=== PATIENT | female | born 1930 | race Caucasian/White ===

== ENCOUNTER 2019-12-08 11:16 | Inpatient (IN) | payer MEDICARE ==
[2019-12-08] MEDS ORDERED: traMADol HCl 50 MG TAB PO PRN (12:17)
[2019-12-08] MEDS ORDERED: Ondansetron PF 4 MG/2 ML Vial IVP PRN (12:18)
[2019-12-08 13:59] LABS: #Lymphocytes 0.9 thou/uL (1.20-3.40); #Monocytes 0.4 thou/uL (0.11-0.59); #Neutrophils 6.9 thou/uL (1.40-6.50); %Eosinophils 0.1 % (0.0-10.0); %Lymphocytes 10.6 % (21.0-51.0); %Monocytes 5.2 % (0.0-10.0); %Neutrophils 84.2 % (42.0-75.0); Hemoglobin 13.8 g/dL (12.0-16.0); Mean Corpuscular HGB CONC 33.7 g/dL (32.0-36.0); Mean Corpuscular Hemoglobin 31.8 pg (27.0-31.0); Mean Corpuscular Volume 94.4 fL (78.0-98.0); Mean Platelet Volume 7.5 fL (7.4-10.4); Platelet Count 225 thou/uL (130-400); RBC Distribution Width 12.7 % (11.5-14.5); Red Blood Cell (RBC) Count 4.35 mill/uL (4.20-5.40); White Blood Cell (WBC) Count 8.2 thou/uL (4.8-10.8)
[2019-12-08 14:22] LABS: Anion Gap 16 mmol/L (10-20); BUN (Urea Nitrogen) 18 mg/dL (9.8-20.1); Calc. Creatinine Clearance 0 mL/min (70-130); Calcium 9.4 mg/dL (7.8-10.44); Carbon Dioxide 28 mmol/L (23-31); Chloride 95 mmol/L (98-107); Estimated GFR-MDRD 58; Glucose 123 mg/dL (83-110); Magnesium 2.8 mg/dL (1.6-2.6); Phosphorus 3.1 mg/dL (2.3-4.7); Potassium 3.9 mmol/L (3.5-5.1); Sodium 135 mmol/L (136-145)
[2019-12-08 15:08] VITALS: BMI 22.3
[2019-12-08] MEDS ORDERED: Ondansetron ODT 4 MG TAB PO PRN (15:16)
[2019-12-08] MEDS ORDERED: Calcium Carbonate 500 MG ChewTAB PO PRN (15:16)
[2019-12-08] MEDS ORDERED: Bisacodyl 10 MG SUPP PR PRN (15:16)
[2019-12-08] MEDS ORDERED: hydrALAZINE 20 MG/ML VIAL SLOW IVP PRN (16:19)
[2019-12-08] MEDS: Calcium Carbonate 600 MG + Vit D TAB PO SCH (17:18)
[2019-12-08] MEDS: Fentanyl 100 MCG/2 ML VIAL SLOW IVP PRN (17:18)
[2019-12-08] MEDS: Carbidopa/Levodopa 25-100 mg Tablet PO SCH ×2 (17:18→21:48)
[2019-12-08] MEDS ORDERED: Carbidopa/Levodopa 25-100 mg Tablet PO SCH (17:30)
[2019-12-08 19:16] LABS: Bacteria/HPF 4+ HPF (None Seen); Bilirubin Negative (Negative); Blood, Urine Negative (Negative); Clarity Turbid (Clear); Glucose, Urine (Dipstick) Normal (Negative); Ketone, Urine Negative (Negative); Leukocyte 250 Leu/uL (Negative); Nitrite Negative (Negative); Protein, Urine (Dipstick) 10 mg/dL (Neg-Trace); RBC/HPF 0-3 HPF (0-3); Urobilinogen Normal mg/dL (Less than 2); WBC/HPF Greater than 50 HPF (0-3)
[2019-12-08 19:17] LABS: Urine Culture Reflex No No
[2019-12-08] MEDS: cefTRIAXone\\ROCEPHIN 1 GM in Sodium Chloride 0.9% 100 ML IVPB SCH (21:00)
[2019-12-08] MEDS: Multivit, Therapeutic 1 TAB PO SCH (21:46)
[2019-12-08] MEDS: Senokot S 8.6-50 MG TAB PO SCH (21:48)
--- NOTE | 2019-12-08 22:27 | PDOC.HOSPP ---
- Subjective Encounter Date: 12/08/19 Encounter Time: 15:00 Subjective: Patient seen and examined for medical management. Had a mechanical fall yesterday causing right humerus fracture. Denies any loss of consciousness. Denies any cardiac issues. Patient has history of Parkinson disease and h ypertension. No chest pain, shortness of breath, palpitations, nausea, vomiting, fever, dysuria or diarrhea reported. - Objective Vital Signs & Weight: Vital Signs (12 hours) Temp Pulse Resp BP Pulse Ox 12/08/19 20:32 98.6 F 88 16 133/74 96 12/08/19 19:45 98.5 F 77 16 146/75 H 93 L 12/08/19 15:36 98.5 F 81 18 129/62 93 L 12/08/19 12:00 98.1 F 79 14 157/81 H 98 Weight Weight 126 lb I&O: 12/07/19 12/08/19 12/09/19 06:59 06:59 06:59 Intake Total 130 Balance 130 Result Diagrams: 12/08/19 13:48 12/08/19 13:48 Additional Labs: Laboratory Tests 12/08/19 19:00 Urine WBC Greater than 50 A Urine Bacteria 4+ A Radiology Reviewed by me: Yes (Chest x-raynegative for infiltrate) Hospitalist ROS - Review of Systems Cardiovascular: denies: chest pain, palpitations, orthopnea, paroxysmal noc. dyspnea, edema, light headedness, other Gastrointestinal: denies: nausea, vomiting, abdominal pain, diarrhea, constipation, melena, hematochezia, other All other systems reviewed; all pertinent +/- noted in HPI/Subj - Medication Medications: Active Medications Generic Name Dose Route Start Last Admin Trade Name Freq PRN Reason Stop Dose Admin Calcium/Vitamin D 1 tab 12/08/19 17:00 12/08/19 17:18 Calcium Carbonate 600 Mg + Vit D Tab PO 1 tab BID-WM LEE Administration Carbidopa/Levodopa 1 tab 12/08/19 21:00 12/08/19 21:48 Carbidopa/Levodopa 25-100 Mg Tablet PO 1 tab 0600,1100,1600,2100 LEE Administration Fentanyl 50 mcg 12/08/19 12:18 12/08/19 17:18 Fentanyl 100 Mcg/2 Ml Vial SLOW IVP 50 mcg Q1H PRN Administration PAIN 7-10 Ceftriaxone Sodium 1 gm/ 100 mls @ 200 mls/hr 12/08/19 20:00 12/08/19 21:00 Sodium Chloride IVPB 100 mls 2000 LEE Administration Multivitamins 1 tab 12/08/19 21:00 12/08/19 21:46 Multivit, Therapeutic 1 Tab PO 1 tab HS LEE Administration Senna/Docusate Sodium 2 tab 12/08/19 21:00 12/08/19 21:48 Senokot S 8.6-50 Mg Tab PO Not Given BID LEE - Exam General Appearance: NAD Neck: supple, no JVD Heart: RRR, no gallops, no rubs, normal peripheral pulses Respiratory: no wheezes, no rales, no ronchi, normal chest expansion Gastrointestinal: non-tender, non-distended, no guarding, no rigidity Extremities: no cyanosis, no clubbing, no edema Extremities - other findings: No calf tenderness, right arm sling Skin: normal turgor Neurological: no new deficit Psychiatric: normal affect, A&O x 3 Hosp A/P (1) Generalized weakness Code(s): R53.1 - WEAKNESS Status: Acute (2) UTI (urinary tract infection) Status: Acute (3) Fall Code(s): W19.XXXA - UNSPECIFIED FALL, INITIAL ENCOUNTER Status: Acute (4) CKD (chronic kidney disease) stage 3, GFR 30-59 ml/min Code(s): N18.3 - CHRONIC KIDNEY DISEASE, STAGE 3 (MODERATE) Status: Chronic (5) Parkinson disease Code(s): G20 - PARKINSON'S DISEASE Status: Chronic (6) GERD (gastroesophageal reflux disease) Code(s): K21.9 - GASTRO-ESOPHAGEAL REFLUX DISEASE WITHOUT ESOPHAGITIS Status: Chronic (7) Hypertension Code(s): I10 - ESSENTIAL (PRIMARY) HYPERTENSION Status: Chronic - Plan DVT proph w/SCDs 12/07 Urinalysis is consistent with UTI. We will start her on ceftriaxone. UTI may have caused her to fall 2 days ago. Labs were reviewed. Will hold diuretics. Start gentle hydration. Continue carbidopa levodopa for Parkinson disease. Continue omeprazole. Add Stool softeners. Consult physical therapy. EKG. Will continue to follow. Thank you for this consultation. Patient is full code and makes her own decision with the help of her family.
[2019-12-08] MEDS: HYDROcodone/Acetaminophen 5/325 mg Tablet PO PRN (23:06)
[2019-12-08] MEDS: Sodium Chloride 0.9% 1,000 ML IV SCH (23:08)
[2019-12-09] MEDS: HYDROcodone/Acetaminophen 5/325 mg Tablet PO PRN ×3 (05:11→20:21)
[2019-12-09] MEDS: Carbidopa/Levodopa 25-100 mg Tablet PO SCH ×4 (05:12→20:18)
[2019-12-09] MEDS ORDERED: Lidocaine 1% PF 5 ML VIAL ONE (10:46)
[2019-12-09] MEDS ORDERED: Metoclopramide HCl 10 MG/2 ML VIAL ONE (10:46)
[2019-12-09] MEDS ORDERED: PHENYLEPHRINE-NS 100 MCG/ML 10 ML SYRINGE ONE (10:46)
[2019-12-09] MEDS ORDERED: Dexamethasone 20 MG/5 ML VIAL ONE (10:46)
[2019-12-09] MEDS ORDERED: Rocuronium Bromide 10 MG/ML (10ML VIAL) ONE (10:46)
[2019-12-09] MEDS ORDERED: Ketorolac Tromethamine 30 MG/ML VIAL ONE (10:46)
[2019-12-09] MEDS ORDERED: Ondansetron PF 4 MG/2 ML Vial ONE (10:46)
[2019-12-09] MEDS ORDERED: PROPOFOL 200 MG/20 ML VIAL ONE (10:46)
[2019-12-09] MEDS ORDERED: Famotidine/PF 20 mg/2ml Vial ONE (11:24)
[2019-12-09] MEDS ORDERED: CEFAZOLIN 2 GM in Premix Bag 1 BAG IVPB SCH (12:00)
[2019-12-09 13:15] LABS: SARS-CoV-2 MS2 Positive; SARS-CoV-2 N Gene Negative; SARS-CoV-2 S Gene Negative; SARS-CoV-2 by NAA Not Detected (NotDetected); SARS-CoV-2 orf1ab Negative
[2019-12-09] MEDS ORDERED: Fentanyl 100 MCG/2 ML VIAL ONE ×3 (13:28→16:34)
[2019-12-09] MEDS ORDERED: Bupivacaine HCl 0.5%/Epinephrine 1:200,000/PF 30 ml Vial ONE (14:05)
[2019-12-09] MEDS ORDERED: SUGAMMADEX SODIUM 200 MG/2 ML VIAL ONE (14:16)
[2019-12-09] MEDS: Calcium Carbonate 600 MG + Vit D TAB PO SCH ×2 (14:18→18:33)
[2019-12-09] MEDS: Senokot S 8.6-50 MG TAB PO SCH ×2 (14:19→20:18)
[2019-12-09] MEDS: Famotidine 20 MG TAB PO SCH (14:19)
[2019-12-09] MEDS ORDERED: Promethazine HCl 25 MG/ML VIAL SLOW IVP PRN (14:48)
[2019-12-09] MEDS ORDERED: Ondansetron HCl/PF 4 MG/2 ML Vial IVP PRN (14:48)
--- NOTE | 2019-12-09 15:06 | EKG ---
Test Reason : Blood Pressure : / mmHG Vent. Rate : 085 BPM Atrial Rate : 085 BPM P-R Int : 140 ms QRS Dur : 078 ms QT Int : 358 ms P-R-T Axes : 038 -02 030 degrees QTc Int : 426 ms Sinus rhythm with Premature atrial complexes Cannot rule out Anterior infarct , age undetermined Abnormal ECG Confirmed by SAMY WALL ([id number]) on 12/09/2019 3:06:29 PM Referred By: RAINE RUIZ Confirmed By:SAMY WALL
--- NOTE | 2019-12-09 15:09 | RAD ---
XR Elbow Rt 4 View STANDARD History: ORIF elbow Comparison: Radiograph 12/04/2019 Findings: Dorsal plate and screw fixation with interfragmentary screw of the humerus. Satisfactory po stoperative alignment. Impression: Fluoroscopy for surgical purposes. Total fluoroscopy time: 3.2 seconds
[2019-12-09] MEDS ORDERED: hydrALAZINE 20 MG/ML VIAL ONE (16:23)
--- NOTE | 2019-12-09 16:33 | OP ---
DATE OF PROCEDURE: 12/09/2019 PREOPERATIVE DIAGNOSIS: Supracondylar distal humerus fracture, right. POSTOPERATIVE DIAGNOSIS: Supracondylar distal humerus fracture, right. PROCEDURE PERFORMED: Open reduction and internal fixation of right distal humerus. ANESTHESIA: General. [employer]: Naresh Ruiz PA-C TOURNIQUET TIME: 58 minutes at 250 mmHg. ESTIMATED BLOOD LOSS: Less than 5 mL. IMPLANTS: Synthes 3.5 LCP posterolateral distal humeral plate. COMPLICATIONS: None. DRAINS: None. SPECIMEN: None. OUTCOME: Satisfactory. INDICATIONS: The patient is an 89-year-old lady who fell from her porch, landing on her outstretched right arm, sustaining a distal humerus fracture. The patient is having increasing pain and does have a displaced supracondylar distal humerus fracture. After discussion with the patient including risks and benefits, we decided to proceed with open reduction and internal fixation. Informed consent has been obtained, I believe all questions answered. DESCRIPTION OF PROCEDURE: The patient was brought to the operating room and a time-out performed followed by induction of general anesthesia. Next, the patient was positioned in a left lateral decubitus position and a sterile prep and drape was performed of the right upper extremity. Next, the limb was exsanguinated with an Esmarch bandage and tourniquet inflated to 250 mmHg. A posterior skin incision was then made after skin was sharply incised. Dissection was carried down to the underlying triceps tendon. Triceps tendon was incised in line with the skin incision and reflected medially and laterally. My speech pathologist assistant provided retraction to the ulnar side of the arm, taking care to protect the ulnar nerve during the course of this dissection and stabilization. With my speech pathologist assistant providing retraction of the soft tissue, the fracture was further exposed using a periosteal elevator. Once fully freed of soft tissue, the fracture was reduced and held in place with a bone tenaculum. Next, while my speech pathologist assistant provided stability of the reduced fracture and retraction of the soft tissue and protection of the ulnar nerve to the ulnar side of the fracture, a lateral to medial interfragmentary compression screw was applied across the fracture. Once this was performed, a bone tenaculum was removed. Next, a posterolateral plate was applied along the posterior cortex of the humerus and then curving at the posterolateral aspect of the distal humerus. A small tunnel was created under the triceps exiting at the lateral side of the distal humerus to allow for appropriate positioning of the plate. Once positioned, my speech pathologist assistant held the plate in place while I proceeded to apply two 3.5 mm cortical screws in the proximal limb of the plate. Once done, the distal three screws were used to place locking screws in standard fashion and then one additional cortical screw placed just above the fracture itself. At the completion of this, AP, lateral, C-arm images were obtained that showed excellent anatomic alignment of the fracture and appropriate positioning of hardware. At the completion of this, the wound was then irrigated vigorously with normal saline and then wound closure performed. The wound was closed with #1 Vicryl for the triceps tendon, followed by 2-0 Vicryl and then nylon for the skin. A Xeroform gauze and Webril dressing was applied to the elbow in a posterior fiberglass splint applied. Tourniquet was then let down and the patient was transferred to recovery room in stable condition. There were no complications. The patient tolerated the procedure well. Job ID: [id number]
[2019-12-09] MEDS: Sodium Chloride 0.9% 1,000 ML IV SCH (18:33)
--- NOTE | 2019-12-09 19:32 | PDOC.HOSPP ---
- Subjective Encounter Date: 12/09/19 Encounter Time: 18:00 Subjective: Patient seen and examined for medical management. Underwent surgery today. Denies any chest pain, shortness of breath, fever, nausea or vomiting. - Objective Vital Signs & Weight: Vital Signs (12 hours) Temp Pulse Resp BP Pulse Ox 12/09/19 18:27 98.0 F 76 20 147/76 H 93 L 12/09/19 11:45 97.9 F 68 16 143/79 H 93 L 12/09/19 08:05 93 L 12/09/19 07:40 97.6 F 80 16 142/80 H 93 L Weight Weight 126 lb I&O: 12/08/19 12/09/19 12/10/19 06:59 06:59 06:59 Intake Total 130 840 Balance 130 840 Result Diagrams: 12/08/19 13:48 12/08/19 13:48 EKG Reviewed by me: Yes (Sinus rhythm on telemetry) Hospitalist ROS - Review of Systems Respiratory: denies: cough, dry, shortness of breath, hemoptysis, SOB with excertion, pleuritic pain, sputum, wheezing, other Cardiovascular: denies: chest pain, palpitations, orthopnea, paroxysmal noc. dyspnea, edema, light headedness, other - Medication Medications: Active Medications Generic Name Dose Route Start Last Admin Trade Name Freq PRN Reason Stop Dose Admin Hydrocodone Bitart/Acetaminophen 1 tab 12/08/19 12:16 12/09/19 09:58 Hydrocodone/Acetaminophen 5/325 Mg Tablet PO 1 tab Q4H PRN Administration PAIN 1-6 Calcium/Vitamin D 1 tab 12/08/19 17:00 12/09/19 18:33 Calcium Carbonate 600 Mg + Vit D Tab PO Not Given BID-WM LEE Carbidopa/Levodopa 1 tab 12/08/19 21:00 12/09/19 18:33 Carbidopa/Levodopa 25-100 Mg Tablet PO 1 tab 0600,1100,1600,2100 LEE Administration Famotidine 20 mg 12/09/19 09:00 12/09/19 14:19 Famotidine 20 Mg Tab PO Not Given DAILY LEE Fentanyl 50 mcg 12/08/19 12:18 12/08/19 17:18 Fentanyl 100 Mcg/2 Ml Vial SLOW IVP 50 mcg Q1H PRN Administration PAIN 7-10 Sodium Chloride 1,000 mls @ 75 mls/hr 12/08/19 23:55 12/09/19 18:33 Normal Saline 0.9% IV 12/10/19 23:56 Not Given .[id number] LEE Ceftriaxone Sodium 1 gm/ 100 mls @ 200 mls/hr 12/08/19 20:00 12/08/19 21:00 Sodium Chloride IVPB 100 mls 2000 LEE Administration Multivitamins 1 tab 12/08/19 21:00 12/08/19 21:46 Multivit, Therapeutic 1 Tab PO 1 tab HS LEE Administration Pantoprazole Sodium 40 mg 12/09/19 09:00 12/09/19 14:19 Pantoprazole 40 Mg Tab PO Not Given DAILY LEE Senna/Docusate Sodium 2 tab 12/08/19 21:00 12/09/19 14:19 Senokot S 8.6-50 Mg Tab PO Not Given BID LEE - Exam General Appearance: NAD Neck: supple, no JVD Heart: no gallops, no rubs Respiratory: no wheezes, no ronchi Gastrointestinal: soft, non-distended Neurological: no new deficit Musculoskeletal: generalized weakness Psychiatric: normal affect, A&O x 3 Hosp A/P (1) Generalized weakness Code(s): R53.1 - WEAKNESS Status: Acute (2) UTI (urinary tract infection) Status: Acute (3) Fall Code(s): W19.XXXA - UNSPECIFIED FALL, INITIAL ENCOUNTER Status: Acute (4) CKD (chronic kidney disease) stage 3, GFR 30-59 ml/min Code(s): N18.3 - CHRONIC KIDNEY DISEASE, STAGE 3 (MODERATE) Status: Chronic (5) Parkinson disease Code(s): G20 - PARKINSON'S DISEASE Status: Chronic (6) GERD (gastroesophageal reflux disease) Code(s): K21.9 - GASTRO-ESOPHAGEAL REFLUX DISEASE WITHOUT ESOPHAGITIS Status: Chronic (7) Hypertension Code(s): I10 - ESSENTIAL (PRIMARY) HYPERTENSION Status: Chronic - Plan DVT proph w/SCDs 12/08 Await urine cultures. Continue IV ceftriaxone. Diuretics on hold. Continue carbidopa-levodopa. Continue PPIs. Incentive spirometry. Physical therapy evaluation. Continue other medications as above. 12/07 Urinalysis is consistent with UTI. We will start her on ceftriaxone. UTI may have caused her to fall 2 days ago. Labs were reviewed. Will hold diuretics. Start gentle hydration. Continue carbidopa levodopa for Parkinson disease. Continue omeprazole. Add Stool softeners. Consult physical therapy. EKG. Will continue to follow. Thank you for this consultation. Patient is full code and makes her own decision with the help of her family.
[2019-12-09] MEDS: Multivit, Therapeutic 1 TAB PO SCH (20:18)
[2019-12-09] MEDS: cefTRIAXone\\ROCEPHIN 1 GM in Sodium Chloride 0.9% 100 ML IVPB SCH (20:18)
[2019-12-09] MEDS: CEFAZOLIN 2 GM in Premix Bag 1 BAG IVPB SCH (20:19)
[2019-12-10] MEDS: Sodium Chloride 0.9% 1,000 ML IV SCH ×2 (02:04→12:13)
[2019-12-10] MEDS: CEFAZOLIN 2 GM in Premix Bag 1 BAG IVPB SCH ×3 (03:31→19:42)
[2019-12-10] MEDS: Carbidopa/Levodopa 25-100 mg Tablet PO SCH ×4 (05:16→19:46)
[2019-12-10 05:27] LABS: #Lymphocytes 1.1 thou/uL (1.20-3.40); #Monocytes 0.7 thou/uL (0.11-0.59); #Neutrophils 5.6 thou/uL (1.40-6.50); %Basophils 0.1 % (0.0-1.0); %Eosinophils 0.3 % (0.0-10.0); %Lymphocytes 14.6 % (21.0-51.0); %Monocytes 9.7 % (0.0-10.0); %Neutrophils 75.3 % (42.0-75.0); Hemoglobin 11.4 g/dL (12.0-16.0); Mean Corpuscular HGB CONC 32.8 g/dL (32.0-36.0); Mean Corpuscular Hemoglobin 31.1 pg (27.0-31.0); Mean Corpuscular Volume 95.1 fL (78.0-98.0); Mean Platelet Volume 7.6 fL (7.4-10.4); Platelet Count 192 thou/uL (130-400); RBC Distribution Width 12.7 % (11.5-14.5); Red Blood Cell (RBC) Count 3.65 mill/uL (4.20-5.40); White Blood Cell (WBC) Count 7.5 thou/uL (4.8-10.8)
[2019-12-10] MEDS: HYDROcodone/Acetaminophen 5/325 mg Tablet PO PRN ×4 (05:42→19:45)
[2019-12-10 05:50] LABS: Anion Gap 11 mmol/L (10-20); BUN (Urea Nitrogen) 18 mg/dL (9.8-20.1); Calc. Creatinine Clearance 41 mL/min (70-130); Calcium 7.4 mg/dL (7.8-10.44); Carbon Dioxide 25 mmol/L (23-31); Chloride 106 mmol/L (98-107); Estimated GFR-MDRD 62; Glucose 91 mg/dL (83-110); Potassium 3.7 mmol/L (3.5-5.1); Sodium 138 mmol/L (136-145)
[2019-12-10] MEDS: Senokot S 8.6-50 MG TAB PO SCH ×2 (08:33→19:46)
[2019-12-10] MEDS: Calcium Carbonate 600 MG + Vit D TAB PO SCH ×2 (08:33→17:08)
[2019-12-10] MEDS: Famotidine 20 MG TAB PO SCH (08:36)
--- NOTE | 2019-12-10 11:14 | RAD ---
3 VIEWS OF THE RIGHT WRIST: Date: 12/10/2019 COMPARISON: None. HISTORY: Right wrist pain and swelling. FINDINGS: Three views of the right wrist show no evidence of acute fracture or dislocation. Moderate degenerati ve changes are seen in the first CMC joint. Mild soft tissue swelling is seen. An overlying fiberglas s splint obscures fine bony and soft tissue detail. 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 POS: JEFFREYA
--- NOTE | 2019-12-10 11:33 | RAD ---
3 VIEWS RIGHT HAND: Date: 12/10/2019 HISTORY: Right hand pain and swelling. FINDINGS: Three views of the right hand show no evidence of acute fracture or dislocation. Severe dorsal soft t issue swelling is seen. There is moderate to severe joint space narrowing and osteophyte formation of the first CMC joints. Mild joint space narrowing is seen in the PIP joints of the middle and ring fi ngers. IMPRESSION: Degenerative changes of the right hand without acute osseous abnormality. POS: EAA
[2019-12-10] MEDS: Acetaminophen 325 MG TAB PO PRN (18:30)
--- NOTE | 2019-12-10 19:06 | PDOC.HOSPP ---
- Subjective Encounter Date: 12/10/19 Encounter Time: 08:00 Subjective: Patient seen and examined for medical management. Pain controlled. Denies any chest pain, shortness of breath, nausea or vomiting. - Objective Vital Signs & Weight: Vital Signs (12 hours) Temp Pulse Resp BP Pulse Ox 12/10/19 11:10 98.7 F 90 16 132/68 93 L 12/10/19 07:18 97.8 F 76 16 118/61 94 L Weight Weight 126 lb I&O: 12/09/19 12/10/19 12/11/19 06:59 06:59 06:59 Intake Total 130 1980 2340 Output Total 700 Balance 130 1280 2340 Result Diagrams: 12/10/19 05:12 12/10/19 05:12 Additional Labs: Microbiology 12/08/19 19:00 Urine clean catch Urine Culture - Final Klebsiella pneumoniae ssp pneu 12/08/19 19:00 Urine clean catch Urine Culture - Preliminary Gram Negative Hany Hospitalist ROS - Review of Systems Cardiovascular: denies: chest pain, palpitations, orthopnea, paroxysmal noc. dyspnea, edema, light headedness, other Gastrointestinal: denies: nausea, vomiting, abdominal pain, diarrhea, constipation, melena, hematochezia, other - Medication Medications: Active Medications Generic Name Dose Route Start Last Admin Trade Name Freq PRN Reason Stop Dose Admin Acetaminophen 650 mg 12/08/19 15:16 12/10/19 18:30 Acetaminophen 325 Mg Tab PO 650 mg Q4H PRN Administration Headache/Fever/Mild Pain (1-3) Hydrocodone Bitart/Acetaminophen 1 tab 12/08/19 12:16 12/10/19 15:09 Hydrocodone/Acetaminophen 5/325 Mg Tablet PO 1 tab Q4H PRN Administration PAIN 1-6 Calcium/Vitamin D 1 tab 12/08/19 17:00 12/10/19 17:08 Calcium Carbonate 600 Mg + Vit D Tab PO 1 tab BID-WM LEE Administration Carbidopa/Levodopa 1 tab 12/08/19 21:00 12/10/19 17:08 Carbidopa/Levodopa 25-100 Mg Tablet PO 1 tab 0600,1100,1600,2100 LEE Administration Famotidine 20 mg 12/09/19 09:00 12/10/19 08:36 Famotidine 20 Mg Tab PO Not Given DAILY LEE Fentanyl 50 mcg 12/08/19 12:18 12/08/19 17:18 Fentanyl 100 Mcg/2 Ml Vial SLOW IVP 50 mcg Q1H PRN Administration PAIN 7-10 Sodium Chloride 1,000 mls @ 75 mls/hr 12/08/19 23:55 12/10/19 12:13 Normal Saline 0.9% IV 12/10/19 23:56 1,000 mls .[id number] LEE Administration Ceftriaxone Sodium 1 gm/ 100 mls @ 200 mls/hr 12/08/19 20:00 12/09/19 20:18 Sodium Chloride IVPB 100 mls 2000 LEE Administration Cefazolin Sodium/Dextrose 2 gm 50 mls @ 100 mls/hr 12/09/19 20:00 12/10/19 12:14 / Device IVPB 50 mls 0400,1200,1999 LEE Administration Multivitamins 1 tab 12/08/19 21:00 12/09/19 20:18 Multivit, Therapeutic 1 Tab PO 1 tab HS LEE Administration Pantoprazole Sodium 40 mg 12/09/19 09:00 12/10/19 08:33 Pantoprazole 40 Mg Tab PO 40 mg DAILY LEE Administration Senna/Docusate Sodium 2 tab 12/08/19 21:00 12/10/19 08:33 Senokot S 8.6-50 Mg Tab PO 2 tab BID LEE Administration - Exam General Appearance: NAD Heart: RRR, no gallops Respiratory: no wheezes, no ronchi Gastrointestinal: non-tender, normal bowel sounds Extremities: no cyanosis, no clubbing Neurological: no new deficit Hosp A/P (1) Generalized weakness Code(s): R53.1 - WEAKNESS Status: Acute (2) UTI (urinary tract infection) Status: Acute (3) Fall Code(s): W19.XXXA - UNSPECIFIED FALL, INITIAL ENCOUNTER Status: Acute (4) CKD (chronic kidney disease) stage 3, GFR 30-59 ml/min Code(s): N18.3 - CHRONIC KIDNEY DISEASE, STAGE 3 (MODERATE) Status: Chronic (5) Parkinson disease Code(s): G20 - PARKINSON'S DISEASE Status: Chronic (6) Hyponatremia Code(s): E87.1 - HYPO-OSMOLALITY AND HYPONATREMIA Status: Acute (7) GERD (gastroesophageal reflux disease) Code(s): K21.9 - GASTRO-ESOPHAGEAL REFLUX DISEASE WITHOUT ESOPHAGITIS Status: Chronic (8) Hypertension Code(s): I10 - ESSENTIAL (PRIMARY) HYPERTENSION Status: Chronic - Plan 12/09 Continue carbidopa levodopa. Hold ceftriaxone while on Ancef. Discontinue IV fluid if tolerating p.o. Continue physical therapy/occupational therapy. Continue other medications as above. 12/08 Await urine cultures. Continue IV ceftriaxone. Diuretics on hold. Continue carbidopa-levodopa. Continue PPIs. Incentive spirometry. Physical therapy evaluation. Continue other medications as above. 12/07 Urinalysis is consistent with UTI. We will start her on ceftriaxone. UTI may have caused her to fall 2 days ago. Labs were reviewed. Will hold diuretics. Start gentle hydration. Continue carbidopa levodopa for Parkinson disease. C ontinue omeprazole. Add Stool softeners. Consult physical therapy. EKG. Will continue to follow. Thank you for this consultation. Patient is full code and makes her own decision with the help of her family.
[2019-12-10] MEDS: Multivit, Therapeutic 1 TAB PO SCH (19:46)
[2019-12-10] MEDS: Fentanyl 100 MCG/2 ML VIAL SLOW IVP PRN (20:39)
[2019-12-10] MEDS ORDERED: Melatonin 3 MG TAB PO SCH (23:45)
[2019-12-11] MEDS: HYDROcodone/Acetaminophen 5/325 mg Tablet PO PRN ×2 (03:00→12:39)
[2019-12-11] MEDS: CEFAZOLIN 2 GM in Premix Bag 1 BAG IVPB SCH ×2 (03:01→11:58)
[2019-12-11] MEDS: Carbidopa/Levodopa 25-100 mg Tablet PO SCH ×2 (05:47→11:58)
[2019-12-11] MEDS: Famotidine 20 MG TAB PO SCH (08:58)
[2019-12-11] MEDS: Calcium Carbonate 600 MG + Vit D TAB PO SCH (08:58)
[2019-12-11] MEDS: Senokot S 8.6-50 MG TAB PO SCH (08:58)
--- NOTE | 2019-12-11 13:41 | PDOC.HOSPP ---
- Subjective Encounter Date: 12/11/19 Encounter Time: 09:00 Subjective: Patient seen and examined for medical management. Pain controlled. Denies any nausea, vomiting or worsening tremor. - Objective Vital Signs & Weight: Vital Signs (12 hours) Temp Pulse Resp BP Pulse Ox 12/11/19 12:10 98.2 F 93 18 161/87 H 94 L 12/11/19 08:50 94 L 12/11/19 07:11 97.7 F 89 18 129/76 94 L 12/11/19 03:02 97.8 F 72 18 155/71 H 92 L Weight Weight 126 lb I&O: 12/10/19 12/11/19 12/12/19 06:59 06:59 06:59 Intake Total 1980 3646 580 Output Total 700 Balance 1280 3646 580 Result Diagrams: 12/10/19 05:12 12/10/19 05:12 Hospitalist ROS - Review of Systems Cardiovascular: denies: chest pain, palpitations, orthopnea, paroxysmal noc. dyspnea, edema, light headedness, other Gastrointestinal: denies: nausea, vomiting, abdominal pain, diarrhea, constipation, melena, hematochezia, other - Medication Medications: Active Medications Generic Name Dose Route Start Last Admin Trade Name Freq PRN Reason Stop Dose Admin Acetaminophen 650 mg 12/08/19 15:16 12/10/19 18:30 Acetaminophen 325 Mg Tab PO 650 mg Q4H PRN Administration Headache/Fever/Mild Pain (1-3) Hydrocodone Bitart/Acetaminophen 1 tab 12/08/19 12:16 12/11/19 12:39 Hydrocodone/Acetaminophen 5/325 Mg Tablet PO 1 tab Q4H PRN Administration PAIN 1-6 Calcium/Vitamin D 1 tab 12/08/19 17:00 12/11/19 08:58 Calcium Carbonate 600 Mg + Vit D Tab PO 1 tab BID-WM LEE Administration Carbidopa/Levodopa 1 tab 12/08/19 21:00 12/11/19 11:58 Carbidopa/Levodopa 25-100 Mg Tablet PO 1 tab 0600,1100,1600,2100 LEE Administration Famotidine 20 mg 12/09/19 09:00 12/11/19 08:58 Famotidine 20 Mg Tab PO 20 mg DAILY LEE Administration Fentanyl 50 mcg 12/08/19 12:18 12/10/19 20:39 Fentanyl 100 Mcg/2 Ml Vial SLOW IVP 50 mcg Q1H PRN Administration PAIN 7-10 Ceftriaxone Sodium 1 gm/ 100 mls @ 200 mls/hr 12/08/19 20:00 12/09/19 20:18 Sodium Chloride IVPB 100 mls 1999 LEE Administration Cefazolin Sodium/Dextrose 2 gm 50 mls @ 100 mls/hr 12/09/19 20:00 12/11/19 11:58 / Device IVPB 50 mls 0400,1200,1999 LEE Administration Multivitamins 1 tab 12/08/19 21:00 12/10/19 19:46 Multivit, Therapeutic 1 Tab PO 1 tab HS LEE Administration Pantoprazole Sodium 40 mg 12/09/19 09:00 12/11/19 08:59 Pantoprazole 40 Mg Tab PO 40 mg DAILY LEE Administration Senna/Docusate Sodium 2 tab 12/08/19 21:00 12/11/19 08:58 Senokot S 8.6-50 Mg Tab PO 2 tab BID LEE Administration - Exam General Appearance: NAD Neck: supple, no JVD Heart: RRR, no gallops Respiratory: no wheezes, no ronchi Gastrointestinal: non-tender, non-distended, normal bowel sounds Extremities: no cyanosis, no clubbing Neurological: no new deficit Hosp A/P (1) Generalized weakness Code(s): R53.1 - WEAKNESS Status: Acute (2) UTI (urinary tract infection) Status: Acute (3) Fall Code(s): W19.XXXA - UNSPECIFIED FALL, INITIAL ENCOUNTER Status: Acute (4) CKD (chronic kidney disease) stage 3, GFR 30-59 ml/min Code(s): N18.3 - CHRONIC KIDNEY DISEASE, STAGE 3 (MODERATE) Status: Chronic (5) Parkinson disease Code(s): G20 - PARKINSON'S DISEASE Status: Chronic (6) Hyponatremia Code(s): E87.1 - HYPO-OSMOLALITY AND HYPONATREMIA Status: Acute (7) GERD (gastroesophageal reflux disease) Code(s): K21.9 - GASTRO-ESOPHAGEAL REFLUX DISEASE WITHOUT ESOPHAGITIS Status: Chronic (8) Hypertension Code(s): I10 - ESSENTIAL (PRIMARY) HYPERTENSION Status: Chronic - Plan 12/10 Change antibiotics to Omnicef. Continue carbidopa-levodopa. Will follow as needed. Continue other medications as above. 12/09 Continue carbidopa levodopa. Hold ceftriaxone while on Ancef. Discontinue IV fluid if tolerating p.o. Continue physical therapy/occupational therapy. Continue other medications as above. 12/08 Await urine cultures. Continue IV ceftriaxone. Diuretics on hold. Continue carbidopa-levodopa. Continue PPIs. Incentive spirometry. Physical therapy evaluation. Continue other medications as above. 12/07 Urinalysis is consistent with UTI. We will start her on ceftriaxone. UTI may have caused her to fall 2 days ago. Labs were reviewed. Will hold diuretics. Start gentle hydration. Continue carbidopa levodopa for Parkinson disease. Continue omeprazole. Add Stool softeners. Consult physical therapy. EKG. Will continue to follow. Thank you for this consultation. Patient is full code and makes her own decision with the help of her family.
[2019-12-11] MEDS: Acetaminophen 325 MG TAB PO PRN (15:10)
[2019-12-11 15:39] VITALS: BP 156/85; TEMP 98.4
== END 2019-12-11 16:30 | disposition home or self-care (01) | DRG 493 ==
LOC: SURG A 11:38
PROVIDERS: ADMIT Orthopaedic Surgery; ATTEND Orthopaedic Surgery
PROC: 0PSF04Z Reposition Right Humeral Shaft with Internal Fixation Device, Open Approach (ICD-10-PCS; principal; 2019-12-09)
DX: S42.411A Displaced simple supracondylar fracture without intercondylar fracture of right humerus, initial encounter for closed fracture (principal); N39.0 Urinary tract infection, site not specified; E87.1 Hypo-osmolality and hyponatremia; W19.XXXA Unspecified fall, initial encounter; N18.30 Chronic kidney disease, stage 3 unspecified; G20 Parkinson's disease; K21.9 Gastro-esophageal reflux disease without esophagitis; I12.9 Hypertensive chronic kidney disease with stage 1 through stage 4 chronic kidney disease, or unspecified chronic kidney disease; Z20.828 Contact with and (suspected) exposure to other viral communicable diseases; Z90.710 Acquired absence of both cervix and uterus
CPT/HCPCS: 36415; 76000; 80048; 81001; 83735; 84100; 85025; 87077; 87086; 87186; 87635; 93005; 93010; C1713; J0360; J0690; J0696; J1100; J1885; J2405; J2704; J2765; J3010; J3490; S0028; U0003